=== PATIENT | female | born 1985 ===

== ENCOUNTER → 2023-02-13 09:49 | Outpatient (CLI) | payer OTHER, SELFPAY ==
--- NOTE | ~2023-02-13 | XR_ITS ---
AP and lateral views of the right femur Clinical History: Pain Findings: No acute fracture or dislocation is seen. Osseous alignment is anatomic. Visualized joint s paces are grossly preserved. Soft tissues are unremarkable. Impression: Unremarkable right femoral radiographs. Reviewed, dictated and finalized at location M. Impression: Unremarkable right femoral radiographs.
== END ==
PROVIDERS: PCP Family Medicine; Visit Provider Family Medicine
DX: M79.604 Pain in right leg (principal)
CPT/HCPCS: 73552

== ENCOUNTER 2023-09-19 09:55 | Outpatient (CLI) | payer OTHER, SELFPAY ==
--- NOTE | ~2023-09-19 | US_ITS ---
EXAMINATION: US soft tissue LE RT DATE: 09/19/2023 10:24 INDICATION: Soft tissue disorder. TECHNIQUE: Multiple grayscale and Doppler ultrasound images of the right lower limb were obtained. COMPARISON: Right femur radiographs 02/13/2023 FINDINGS: In anterior right thigh, there is a 2.0 x 0.6 x 1.3 cm hypoechoic subcutaneous mass abuttin g the musculature. IMPRESSION: 1. 2.0 cm subcutaneous mass in anterior right thigh. The differential diagnosis includes hematoma, be nign masses such as peripheral nerve sheath tumor or hemangioma, and less likely malignancy. Ultrasou nd-guided core needle biopsy is recommended if this finding does not resolve. Reviewed, dictated and finalized at location A. TACKER IMPRESSION: 1. 2.0 cm subcutaneous mass in anterior right thigh. The differential diagnosis includes hematoma, benign masses such as peripheral nerve sheath tumor or narciso ngioma, and less likely malignancy. Ultrasound-guided core needle biopsy is rec ommended if this finding does not resolve.
== END 2023-09-19 09:56 ==
PROVIDERS: PCP Family Medicine; Visit Provider Family Medicine
DX: R22.41 Localized swelling, mass and lump, right lower limb (principal)
CPT/HCPCS: 76882